=== PATIENT | female | born 1975 | race Two or more races ===

== ENCOUNTER 2020-10-19 16:57 | Emergency (ER) | payer MEDICAID ==
[~2020-10-19] VITALS: Ht 160 cm; Wt 110.2 kg
[2020-10-19 21:00] VITALS: BP 112/78
== END 2020-10-19 22:43 | disposition home or self-care (01) ==
LOC: ER 16:57
DX: L03.116 Cellulitis of left lower limb (principal)
CPT/HCPCS: 93971

== ENCOUNTER 2020-10-29 10:25 | Inpatient (IN) | payer MEDICAID ==
[~2020-10-29] VITALS: Ht 160 cm; Wt 111.4 kg
[2020-10-29] MEDS ORDERED: PIPERACILLIN-TAZO 4.5GM 100 ML IV ONE (11:00)
[2020-10-29] MEDS ORDERED: VANCOMYCIN 1GM/250ML 250 ML IV ONE (11:15)
[2020-10-29 11:26] LABS: Basophils # (auto) 0 10 ^3/uL (0-0.2); Basophils % (auto) 0.6 % (0.0-2.0); Eosinophils # (auto) 0.1 10 ^3/uL (0-0.8); Hematocrit 32.7 % (36.0-46.0); Monocytes # (auto) 0.5 10 ^3/uL (0-1.3); Neutrophils # (auto) 4.5 10 ^3/uL (1.6-8.6); Nucleated Red Blood Cells % 0.1 %
[2020-10-29 11:28] LABS: Eosinophils % (auto) 1.5 % (0.0-7.0); Hemoglobin 11.4 g/dL (12.2-16.2); Lymphocytes # (auto) 1.5 10 ^3/uL (0.4-5.4); Lymphocytes % (auto) 22.7 % (10.0-50.0); Mean Corpuscular Hemoglobin 32.8 pg (28.0-32.0); Mean Corpuscular Hgb Conc. 34.9 g/dL (32.0-36.0); Mean Corpuscular Volume 93.8 fL (80.0-100.0); Monocytes % (auto) 7.4 % (0.0-12.0); Neutrophils % (auto) 67.8 % (37.0-80.0); Platelet Count (auto) 522 10^3/uL (140-450); Red Blood Cells 3.49 10^6/uL (4.0-5.20); Red Cell Distribution Width 13.3 % (11.8-14.3); White Blood Cell 6.7 10^3/uL (4.4-10.8)
[2020-10-29 11:41] LABS: Albumin 2.8 g/dL (3.4-5.0); Calcium 8.4 mg/dL (8.5-10.1)
[2020-10-29 11:44] LABS: BUN/Creatinine Ratio 13.3; Bilirubin, Total 0.4 mg/dL (0.2-1.0)
[2020-10-29 12:44] LABS: Urine Bacteria NONE SEEN /hpf (None Seen); Urine Blood 3+ /uL (Negative); Urine Mucus FEW (None Seen); Urine Specific Gravity 1.027 (1.001-1.035); Urine WBC 19 /hpf (0 - 5)
[2020-10-29] MEDS ORDERED: NITROGLYCERIN 0.4 MG SL TAB SL PRN (13:30)
[2020-10-29] MEDS ORDERED: MORPHINE SULF INJ 2 MG/ML SYRINGE 1ML IV PRN ×2 (13:30)
[2020-10-29] MEDS ORDERED: ONDANSETRON HCL 4 MG/2 ML VIAL IV PRN (13:30)
[2020-10-29] MEDS ORDERED: ACETAMINOPHEN 325 MG TAB PO PRN (13:30)
[2020-10-29] MEDS ORDERED: VANCOMYCIN PER PHARMACY 0 MG IV SCH (13:30)
[2020-10-29 16:51] VITALS: BP 135/90
[2020-10-29] MEDS ORDERED: TRAM50TA2 PO (17:26)
[2020-10-29] MEDS ORDERED: LEVE500T32 PO (17:26)
[2020-10-29] MEDS ORDERED: CLIN150C8 PO (17:26)
[2020-10-29] MEDS ORDERED: PIPERACILLIN-TAZOB 3.375GM 100 ML IV SCH (18:00)
[2020-10-29] MEDS: ACETAMINOPHEN 325 MG TAB PO PRN (18:15)
[2020-10-29] MEDS: levETIRAcetam 500 MG TAB PO SCH (20:22)
[2020-10-29] MEDS: PENICILLIN G POTASSIUM 2,500,000 UNITS in D5W 5% 50 ML IV SCH ×2 (20:23→23:55)
[2020-10-29 22:00] VITALS: BP 125/77
[2020-10-29] MEDS ORDERED: VANCOMYCIN 1GM/250ML 250 ML IV SCH (22:00)
[2020-10-30] MEDS: PENICILLIN G POTASSIUM 2,500,000 UNITS in D5W 5% 50 ML IV SCH ×6 (03:51→23:23)
[2020-10-30] MEDS: HYDROcodone-ACET 5/325MG TAB PO PRN ×2 (04:55→22:17)
[2020-10-30 05:00] VITALS: BP 110/62
[2020-10-30] MEDS: ACETAMINOPHEN 325 MG TAB PO PRN (07:47)
[2020-10-30 08:20] VITALS: BP 137/68
[2020-10-30] MEDS: levETIRAcetam 500 MG TAB PO SCH ×2 (09:22→22:16)
[2020-10-30] MEDS: ENOXAPARIN SOD 40 MG/0.4 ML SYRINGE SC SCH (09:23)
[2020-10-30] MEDS ORDERED: FUROSEMIDE 40 MG/4 ML VIAL IV ONE (11:30)
[2020-10-30 13:20] VITALS: BP 132/77
[2020-10-30 17:00] VITALS: BP 124/90
[2020-10-30] MEDS: FUROSEMIDE 40 MG/4 ML VIAL IV SCH (22:16)
[2020-10-30] MEDS: POTASSIUM CHL 10 Meq TABLET PO SCH (22:16)
[2020-10-30 22:28] VITALS: BP 130/85
[2020-10-31] MEDS: PENICILLIN G POTASSIUM 2,500,000 UNITS in D5W 5% 50 ML IV SCH ×6 (03:07→22:28)
[2020-10-31 04:51] VITALS: BP 131/80
[2020-10-31 05:33] LABS: Basophils # (auto) 0.1 10 ^3/uL (0-0.2); Eosinophils # (auto) 0.1 10 ^3/uL (0-0.8); Eosinophils % (auto) 1.9 % (0.0-7.0); Hematocrit 34.5 % (36.0-46.0); Lymphocytes # (auto) 2.3 10 ^3/uL (0.4-5.4); Lymphocytes % (auto) 32.2 % (10.0-50.0); Mean Corpuscular Hemoglobin 33.3 pg (28.0-32.0); Mean Corpuscular Hgb Conc. 34.9 g/dL (32.0-36.0); Mean Corpuscular Volume 95.4 fL (80.0-100.0); Monocytes # (auto) 0.6 10 ^3/uL (0-1.3); Monocytes % (auto) 8.5 % (0.0-12.0); Neutrophils % (auto) 56.4 % (37.0-80.0); Nucleated Red Blood Cells % 0.1 %; Platelet Count (auto) 447 10^3/uL (140-450); Red Blood Cells 3.62 10^6/uL (4.0-5.20); Red Cell Distribution Width 13.1 % (11.8-14.3); White Blood Cell 7.1 10^3/uL (4.4-10.8)
[2020-10-31 05:51] LABS: Calcium 8.3 mg/dL (8.5-10.1); Magnesium 2.2 mg/dL (1.6-2.6); Potassium 3.8 mmol/L (3.5-5.1)
[2020-10-31 05:53] LABS: BUN/Creatinine Ratio 14.3
[2020-10-31 08:30] VITALS: BP 119/76
[2020-10-31] MEDS: FUROSEMIDE 40 MG/4 ML VIAL IV SCH ×2 (09:07→21:23)
[2020-10-31] MEDS: ENOXAPARIN SOD 40 MG/0.4 ML SYRINGE SC SCH (09:08)
[2020-10-31] MEDS: levETIRAcetam 500 MG TAB PO SCH ×2 (09:08→21:24)
[2020-10-31] MEDS: POTASSIUM CHL 10 Meq TABLET PO SCH ×2 (09:08→21:24)
[2020-10-31 12:30] VITALS: BP 121/74
[2020-10-31 16:55] VITALS: BP 142/78
[2020-10-31 22:00] VITALS: BP 123/81
[2020-10-31] MEDS: ACETAMINOPHEN 325 MG TAB PO PRN (22:29)
[2020-11-01] MEDS: PENICILLIN G POTASSIUM 2,500,000 UNITS in D5W 5% 50 ML IV SCH ×3 (02:56→12:12)
[2020-11-01 05:00] VITALS: BP 135/77
[2020-11-01 08:00] VITALS: BP 123/81
[2020-11-01 08:23] VITALS: BP 140/73
[2020-11-01] MEDS: FUROSEMIDE 40 MG/4 ML VIAL IV SCH (09:19)
[2020-11-01] MEDS: levETIRAcetam 500 MG TAB PO SCH (09:19)
[2020-11-01] MEDS: POTASSIUM CHL 10 Meq TABLET PO SCH (09:20)
[2020-11-01] MEDS: ENOXAPARIN SOD 40 MG/0.4 ML SYRINGE SC SCH (09:21)
[2020-11-01 12:29] VITALS: BP 113/75
[2020-11-01 13:50] VITALS: BP 113/75
== END 2020-11-01 14:15 | disposition home or self-care (01) | DRG 383 ==
LOC: ER 10:25 → OVERFLOW 13:29 → WEST WING 16:54
PROVIDERS: ADMIT Internal Medicine; ATTEND Internal Medicine
DX: L03.116 Cellulitis of left lower limb (principal); E66.01 Morbid (severe) obesity due to excess calories; Z20.822 Contact with and (suspected) exposure to COVID-19; I87.8 Other specified disorders of veins; G40.909 Epilepsy, unspecified, not intractable, without status epilepticus; Z83.3 Family history of diabetes mellitus; Z68.41 Body mass index [BMI] 40.0-44.9, adult
CPT/HCPCS: 36415; 73700; 80048; 80053; 81001; 82565; 83605; 83735; 85025; 87040; 87081; 87426; 93971; 96365; 96366; 96367; 96375; G0378; J2543; J7060

== ENCOUNTER 2021-10-09 19:53 | Emergency (ER) | payer MEDICAID ==
[~2021-10-09] VITALS: Ht 160 cm; Wt 108.0 kg
[~2021-10-09 19:53] MED LIST: LEVE500T32 PO; TRAM50TA2 PO
[2021-10-10 01:28] VITALS: BP 143/66
[2021-10-10] MEDS ORDERED: CEPH500C PO (03:35)
[2021-10-10] MEDS ORDERED: TRAM50TA2 PO (03:35)
== END 2021-10-10 03:42 | disposition home or self-care (01) ==
LOC: ER 19:53
DX: L60.0 Ingrowing nail (principal); Z79.899 Other long term (current) drug therapy

== ENCOUNTER 2022-06-18 | Emergency (ER) | payer MEDICAID ==
[~2022-06-18] VITALS: Ht 172.7 cm; Wt 103.0 kg
[2022-06-18] VITALS: BP 122/78
[~2022-06-18] MED LIST changes: +CEPH500C PO
[2022-06-18] MEDS ORDERED: ONDA-144 PO (01:45)
== END 2022-06-18 02:13 | disposition home or self-care (01) ==
LOC: ER
DX: R10.12 Left upper quadrant pain (principal); R10.11 Right upper quadrant pain; R11.10 Vomiting, unspecified; R56.9 Unspecified convulsions

== ENCOUNTER → 2024-12-31 | Day surgery (SDC) | payer MEDICAID ==
[2024-12-26 11:42] LABS: Hematocrit 39.2 % (36.0-46.0); Hemoglobin 13.4 g/dL (12.2-16.2); Mean Corpuscular Hemoglobin 32.9 pg (28.0-32.0); Mean Corpuscular Volume 96.2 fL (80.0-100.0); Nucleated Red Blood Cells % 0.0 %
[2024-12-26 11:54] LABS: Urine Protein, UAD Negative (Negative)
[2024-12-26 12:00] LABS: INR 0.97 (0.9-1.15); Partial Thromboplastin Time 25.6 SEC (24.5-34.5); Prothrombin Time 10.3 sec (9.3-11.8)
[2024-12-26 12:11] LABS: Albumin 4.1 g/dL (3.2-4.8); Alkaline Phosphatase 70 U/L (46-116); Anion Gap 7 (5-15); BUN/Creatinine Ratio 22.7 (10.0-20.0); Blood Urea Nitrogen 17 mg/dL (9-23); Calcium 9.4 mg/dL (8.7-10.4); Carbon Dioxide 25 mmol/L (20-31); Glucose 87 mg/dL (74-106); Potassium 3.9 mmol/L (3.5-5.1); Sodium 142 mmol/L (136-145); Total Protein 7.3 g/dL (5.7-8.2)
[2024-12-26 12:12] LABS: Alanine Aminotransferase < 9 U/L (7-40); Bilirubin, Total 0.2 mg/dL (0.2-1.0); Chloride 110 mmol/L (98-107)
[2024-12-31] VITALS (11 sets, daily range): BP systolic 120; BP diastolic 76; PULSE 65–92; RESP 13–23; TEMP 99.1; O2SAT 92–99
[~2024-12-31] VITALS: Ht 160 cm; Wt 105.2 kg
[~2024-12-31] MED LIST changes: +ALBUTEROL SULF 2.5 MG/0.5ML(0.5%) NEB SOLN NEB STA; -CEPH500C PO; +FLUMAZENIL 0.1 MG/ML INJ 10ML MDV IV PRN; +KETOROLAC TROMETH 30 MG/ML 1ML VIAL ONE; +LEVE100020 PO; -LEVE500T32 PO; +LIDOCAINE 2% (LOCAL ANESTH.) PF 5ml SDV ONE; +LORA-622 PO; +NALOXONE HCL 0.4 MG/ML VIAL IV PRN; +ONDANSETRON HCL 4 MG/2 ML VIAL IV PRN; +ONDANSETRON HCL 4 MG/2 ML VIAL ONE; +PROPOFOL 10 MG/ML 20 ML IV ONE; -TRAM50TA2 PO; +fentaNYL CITRATE 100 MCG/2 ML VL IV PRN; +fentaNYL CITRATE 100 MCG/2 ML VL ONE; +hydrALAZINE HCL 20 MG/ML VL IV PRN
--- NOTE | 2024-12-31 11:51 | DVHOP2 ---
Operative Report - 2 Report Details Date: 12/31/24 Preop Diagnosis: 1. Right ankle synovitis 2. Right ankle peroneal tenosynovitis 3. Right ankle pain Postop Diagnosis: Same as preop Surgeon: Vania Sorto MD Anesthesiologist: See anesthesia Anesthesia: General Consent: The patient was informed of the risks and benefits of the procedure. These include but are not limited to complications of anesthesia, postoperative infection, incomplete relief of symptoms, recurrence of symptoms, damage to blood vessels, nerves and tendons, deep venous thrombosis, pulmonary embolism and possible need for repeat surgery in the future. Complications: None Estimated Blood Loss: Minimal Fluids: See anesthesia Findings: Consistent with diagnosis Indications for Surgery: Worsening right ankle pain Name of Procedure Performed 1. Right ankle scope with extensive debridement (00703) 2. Right ankle peroneal tendon repair (83057) 3. Right ankle peroneal synovectomy (42412) Procedure Details Procedure Details: PRE-PROCEDURE INFORMATION: In the pre-op holding area, the extremity to be operated on was clearly marked and the patient verified correct laterality of the marking. The patient was transferred to the OR table and placed in a supine position. A timeout was performed in which identification of the correct pat ient, procedure, location, and materials was done. The right foot and leg were prepped and draped in normal sterile fashion. The foot and leg were exsanguinated and the thigh tourniquet was inflated to 250 mmHg. DESCRIPTION OF PROCEDURE: Attention was directed to the right anterior ankle where stab incisions were made at the medial and lateral ankle gutters. These incisions were deepened through blunt dissection to the level of the capsule, and utilizing the ankle arthroscopy set, the arthroscopy camera and the debrider were placed into the ankle joint and an extensive exam of the ankle joint was performed of the medial and lateral ankle gutters, the posterior talus and tibia as well as the anterior talus and tibia. These areas were visually inspected using the camera. It was noted that there was significant ankle synovitis, including hemorrhagic synovitis throughout the ankle specifically the medial and lateral gutters. There appeared to be no osteochondral defects or lesion. Utilizing arthroscopy debrider and utilizing the total arthroscopy set, there was extensive debridement of the aforementioned ankle synovitis. It was noted pr ior to performing the arthroscopy that the patient's ankle was maximally dorsiflexed and plantar flexed passively that there was significant audible and palpable clicking within the joint. After this extensive debridement was performed, there was no longer any palpable or audible clicking of this joint. After the ankle scope was performed, the incisions were closed with nylon suture. Attention was directed to the right lateral ankle where a curvilinear incision was made to gain access to the peroneal tendons. This incision was deepened through blunt and sharp dissection until the peroneal tendons were visualized. Care was taken throughout dissection to avoid damage to neurovascular and tendinous structures. The peroneus brevis and peroneus longus were both inspected from the posterior fibula down to the level of the insertion of the peroneus brevis on the fifth metatarsal styloid process. The peroneus brevis was noted to have a longitudinal tear in the tendon. Utilizing a 4-0 Ethibond suture, these tears were repaired and the tendons were retubularized utilizing a buried-knot baseball-type stitch. The remaining synovitis was then removed from the peroneal brevis and longus tendon using a sharp blade and forceps. The peroneal retinaculum was then repaired using 2-0 Vicryl, as there was tearing of the retinaculum posterior to the fibula. The incision was closed with 2-0 Vicryl, 3-0 Monocryl, 4-0 nylon. All surgical wounds were irrigated copiously with saline and closed in layers with the aforementioned suture material. A dry sterile dressing was placed on the surgical extremity. The patient was placed in a cam boot POSTOPERATIVE INFORMATION: The patient tolerated the above noted procedure and anesthesia well and was transferred to the PACU with vital signs stable, and vascular status intact with capillary refill intact to all digits. Postoperative instructions reviewed in detail with the patient with written instructions provided. Patient will return to clinic in approximately 10-14 days for first postoperative visit. Patient has the number of the clinic and was instructed to call prior to that time should any problems, questions, or concerns arise. Condition Good Disposition Home VANIA SORTO DPM Dec 31, 2024 11:51
[2024-12-31] MEDS: ACETAMINOPHEN IV 1000 MG/100ML (10MG/ML) IV ONE (12:00)
[2024-12-31] MEDS: ceFAZolin 2 GM/D5W50ml 50 ML IV ONE (12:45)
[2024-12-31] MEDS: HYDROmorphone HCL 2 MG/ML VL/or syr ONE (14:17)
[2024-12-31] MEDS: HYDROmorphone HCL 2 MG/ML VL/or syr IV PRN (14:17)
[2024-12-31] MEDS: GABAPENTIN 300 MG CAP PO ONE (14:17)
[2024-12-31] MEDS: CELECOXIB 100 MG CAP PO ONE (14:17)
[2024-12-31] MEDS: ALBUTEROL SULF 2.5 MG/0.5ML(0.5%) NEB SOLN ONE (15:53)
== END | disposition home or self-care (01) ==
LOC: SUR 08:56
PROVIDERS: ATTEND Podiatrist
DX: M65.871 Other synovitis and tenosynovitis, right ankle and foot (principal); M76.61 Achilles tendinitis, right leg; M25.571 Pain in right ankle and joints of right foot; I10 Essential (primary) hypertension; G40.909 Epilepsy, unspecified, not intractable, without status epilepticus; F32.A Depression, unspecified; E66.01 Morbid (severe) obesity due to excess calories; Z68.41 Body mass index [BMI] 40.0-44.9, adult; Z79.899 Other long term (current) drug therapy; Z98.890 Other specified postprocedural states
CPT/HCPCS: 28086; 28200; 29898; 36415; 80053; 81003; 81025; 85025; 85610; 85730; 94640; J0690; J1100; J1171; J1885; J2003; J2405; J2704; J3010; J0131